=== PATIENT | female | born 1980 | race Caucasian/White ===

== ENCOUNTER 2019-01-16 14:30 | Observation (INO) ==
--- NOTE | 2019-01-16 15:34 | Diag Imaging Result Doc PS360 ---
EXAM : CT HEAD/C-SPINE W/O CONTRAST HISTORY: fall with LOC TECHNIQUE: 1. CT head without contrast 2. CT cervical spine without contrast COMPARISON: None. FINDINGS: Head: There is posterior scalp soft tissue swelling. No skull fracture. No parenchymal hemorrhage. No epidural or subdural hematoma. No subarachnoid hemorrhage. No mass identified on this noncontrasted exam. No hydrocephalus. Left maxillary air-fluid level. Cervical spine: There is good alignment to the cervical spine. No precervical soft tissue swelling. No subluxation. No fracture. IMPRESSION: Head: Posterior scalp hematoma, but no intracranial injury. Cervical spine: No acute fracture. This exam was performed using automated exposure control, adjustment of mA or kV according to patient size, and/or use of iterative reconstruction technique. Electronically signed by Gilbert Ramirez 01/16/2019 3:31 PM
[2019-01-16] MEDS ORDERED: NORCO-7.5 PO ONE (15:39)
--- NOTE | 2019-01-16 15:39 | PROVIDER DOCUMENTATION ---
HPI-General Adult - General Chief Complaint: Head Injury Stated Complaint: FALL Time Seen by Provider: 01/16/19 14:36 Source: patient Allergies/Adverse Reactions: Patient Allergies Allergy/AdvReac Type Severity Reaction Status Date / Time Penicillins Allergy Severe seizures Verified 05/23/18 06:51 codeine Allergy Intermediate RASH Verified 05/23/18 06:51 morphine Allergy flu like Verified 05/23/18 06:51 symptoms Home Medications: Home Medication List Medication Instructions Recorded Confirmed Last Taken Type Lisinopril/Hydrochlorothiazide 1 each PO DAILY 05/23/16 05/23/18 05/22/18 07:00 History [Lisinopril-Hctz 10-12.5 mg Tab] Hydrocodone/APAP 10 mg/325 mg 1 ea PO Q4H PRN PRN #25 tab 05/24/18 Unknown Rx [Polson-10] Ibuprofen [Motrin] 800 mg PO Q8H PRN PRN #30 tab 05/24/18 Unknown Rx - History of Present Illness -Gen Adult Nature of Presenting Problems: Patient is a 38 yowf who presents via EMS with complaints of a headache, right jaw pain, and right rib pain. Arrived via EMS. States, "I don't know what happened, but I woke up sitting in a chair surrounded by my co-workers and paramedics." Pt does not remember becoming dizzy or any symptoms prior to waking up. No one witnessed the event. She states, "My co-workers said I was wandering around talking crazy." She is now a&ox4 and neurologically intact. Denies any symptoms other than pain. She is non-toxic in appearance. Review of Systems - Adult - REVIEW OF SYSTEMS - ADULT Constitutional: reports: no symptoms reported Eyes: reports: no symptoms reported Ears, Nose, Mouth & Throat: reports: no symptoms reported Cardiovascular: reports: no symptoms reported Respiratory: reports: no symptoms reported Gastrointestinal: reports: no symptoms reported Genitourinary: reports: no symptoms reported Musculoskeletal: reports: see HPI, other (right rib pain, jaw pain). denies: neck pain Integumentary: reports: no symptoms reported Neurological: reports: see HPI, headache/migraines Psychiatric: reports: no symptoms reported Endocrine: reports: no symptoms reported Hematologic/Lymphatic: reports: no symptoms reported Allergic/Immunologic: reports: no symptoms reported All Other Systems: Reviewed and Negative Past History - Adult - PAST MEDICAL HISTORY-ADULT Review of Records: reports: Nursing Assessment Review, Medications Reviewed, Social history reviewed & non-contributory. Major Childhood Illnesses: reports: denies history Cardiovascular: reports: HTN Respiratory: reports: other (pulmonary embolism) Gastrointestinal: reports: denies history Obstetrical/Gynecological: reports: denies history Genitourinary: reports: denies history Musculoskeletal: reports: denies history Neurological: reports: denies history Psychiatric: reports: anxiety Endocrine/Immune: reports: denies history Other Conditions: reports: denies history - PRIOR SURGERIES/PROCEDURES Surgical/Procedure History: reports: hysterectomy - IMMUNIZATION STATUS Childhood Immunizations: See Nurse Assessment Flu Vaccine: See Nurse Assessment - FAMILY HISTORY Family History: reviewed, not pertinent - SOCIAL HISTORY Smoking: non-smoker Physical Exam-General - PHYSICAL EXAM-ADULT Initial Vital Signs Reviewed: Yes - CONSTITUTIONAL General Appearance: alert, mild distress. negative: lethargic, slow to respond - EYES Eyes: PERRL/EOMI, pink conjunctivae - HEAD, EARS, NOSE, MOUTH & THROAT HENMT: moist mucous membranes, normal ENT inspection, TMs normal, pharynx normal , other (occipital scalp hematoma) - NECK Neck: non-tender, full range of motion, supple, normal inspection. negative: C- spine tenderness, trachial deviation, tender lateral, tender midline - RESPIRATORY Respiratory: lungs clear, normal breath sounds, no respiratory distress, no accessory muscle use, other (Right rib region tender to palpation) - CARDIOVASCULAR Cardiovascular: normal peripheral pulses, regular rate, rhythm, no edema, no gallop, no JVD, no murmur - GASTROINTESTINAL (ABDOMEN) Abdominal Exam: normal bowel sounds, non tender, soft, no organomegaly, no pulsatile mass. negative: distended, guarding, rigid, rebound, tenderness, h ernia, mass, hepatomegaly, splenomegaly - MUSCULOSKELETAL Back Exam: normal inspection, no CVA tenderness, no vertebral tenderness, other (NO ecchymoses noted to torso) Extremity: normal range of motion, non-tender, normal gait, normal inspection, normal capillary refill - SKIN Integumentary: normal color, warm/dry. 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, grossly normal, no motor/sensory deficits - PSYCHIATRIC Psych/Mental Status: normal mood/affect, normal thought content, normal thought process, oriented x 3 Progress - PLAN OF CARE/RESULTS Progress/Plan/Lab Results: Vital Signs - 8 hr 01/16/19 14:40 Temperature 97.7 F Pulse Rate 90 Respiratory Rate 18 Blood Pressure 123/81 O2 Sat by Pulse Oximetry 97 Laboratory Results - last 24 hr 01/16/19 14:53 POC Glucose 147 H Orders Category Date Time Status Saline Loc NOW Care 01/16/19 15:[address] HEAD/C-SPINE W/O CONTRAST [CT] Stat Exams 01/16/19 14:[address] MAXILLOFACIAL(SINUS) W/O CO [CT] Stat Exams 01/16/19 15:26 Ordered RIBS UNILAT W/PA CHEST RIGHT [RAD] Stat Exams 01/16/19 15:26 Ordered CBC WITH DIFF [HEME] Stat Lab 01/16/19 15:26 Ordered COMPREHENSIVE METABOLIC PANEL [CHEM] Stat Lab 01/16/19 15:26 Uncollected TROPONIN T Stat Lab 01/16/19 15:26 Uncollected UA NIMS W/REFLEX CULT [URINALYSIS] Stat Lab 01/16/19 15:26 Uncollected 3- Admitting HPS paged. Pt in agreement with admission plan. Result Diagrams: 01/16/19 15:51 01/16/19 15:51 - EKG 1 Time of EKG reading by physician:: 14:53 EKG Read and Signed by:: Michael Vasquez EKG Interpretation (*Must complete 3 of following elements*): Normal Rate: 88 Rhythm: NSR QRS: normal ST Wave: normal - XRAY 1 XRAY: Right XRAY Study: Chest (IMPRESSION: Negative exam. Electronically signed by Frederick Rodriguez 01/16/2019 4:26 PM), Ribs - CT/MRI 1 CT Study: Cervical Spine (IMPRESSION: Head: Posterior scalp hematoma, but no intracranial injury. Cervical spine: No acute fracture. This exam was performed using automated exposure control, adjustment of mA or kV according to patient size, and/or use of iterative reconstruction technique. Electronically signed by Gilbert Ramirez 01/16/2019 3:31 PM), Head 2 CT Study: Facial Bones (IMPRESSION: No acute injury. Electronically signed by Frederick Rodriguez 01/16/2019 4:14 PM) 3 CT Study: Angiogram (IMPRESSION: Negative exam. This exam was performed using automated exposure control, adjustment of mA or kV according to patient size, and/or use of iterative reconstruction technique Electronically signed by Frederick Rodriguez 01/16/2019 7:28 PM) - CONSULTS/PCP/HOSPITALIST Notification #1 *Consult/PCP/Hospitalist*: Dr. Morillo Time Discussed: 20:03 Reason/Comments: admission- possible syncope Consult Disposition: Admit Departure - Departure Date of Disposition Decision: 01/16/19 Time of Disposition Decision: 20:03 DIAGNOSIS: Syncope Qualifiers: Syncope type: unspecified Qualified Code(s): R55 - Syncope and collapse Disposition: ADMITTED INPATIENT 09 Certified Medical Emergency: Emergent Condition: Serious Referrals and Follow-Ups: Valeria Cui MD [Primary Care Provider] - - Critical Care Note This patient required my direct & personal management of CC.: No Attestation - Physician/ ENRIQUETA Attestation Patient care was provided by Advanced Practice Provider:: Yes Advanced Practice Provider:: Nicole Lemons Advanced Practice Provider documentation review:: The Mid-level provider documentation, treatment plan and medical decision making was reviewed by the physician who agrees with all treatment and medical decision making by the MLP. The physician spent face to face time with patient:: No Advanced Practice Provider documentation review:: Supervising physician onsite and consulted in the evaluation and care of this patient. The physician did not have a face to face encounter with the patient.
[2019-01-16 16:08] LABS: BASO# 0.03 X1000 (0.0-0.2); BASO% 0.1 % (0.0-0.8); EOS# 0.01 X1000 (0.0-0.7); HEMATOCRIT 44.7 % (37.0-47.0); HEMOGLOBIN 15.7 g/dL (12.0-16.0); IMM GRAN# 0.08 X1000 (0.0-0.04); IMM GRAN% 0.4 % (0.0-0.5); MCH 30.7 PG (27-31); MCHC 35.1 g/dL (33-37); MCV 87.3 FL (81-99); MONO# 1.15 X1000 (0.11-0.59); MONO% 5.3 % (1.7-9.3); MPV 9.1 FL (7.4-10.4); NEUT# 19.25 X1000 (1.4-6.5); NEUT% 88.2 % (42.2-75.2); PLT 463 X1000 (130-400); RBC 5.12 XMIL (4.2-5.4); RDW 12.5 % (11.5-14.5); WBC 21.82 X1000 (4.8-10.8)
--- NOTE | 2019-01-16 16:16 | Diag Imaging Result Doc PS360 ---
CT MAXILLOFACIAL(SINUS) W/O CO - 01/16/2019 INDICATION: fall, facial pain TECHNIQUE: COMPARISON: None FINDINGS: There is a small amount of fluid in the left maxillary sinus. Other sinuses are clear. Mastoids and middle ears are clear. The facial bones are intact and normally aligned. IMPRESSION: No acute injury. Electronically signed by Frederick Rodriguez 01/16/2019 4:14 PM
--- NOTE | 2019-01-16 16:20 | EKG Report ---
Test Performed on : 01/16/2019 2:50:36 PM Test Reason : ED. NO EKG ORDER FOR MUSE Blood Pressure : / mmHG Vent. Rate : 088 BPM Atrial Rate : 088 BPM P-R Int : 134 ms QRS Dur : 076 ms QT Int : 386 ms P-R-T Axes : 033 018 045 degrees QTc Int : 467 ms Normal sinus rhythm. Normal ECG When compared with ECG of 16-MAY-2018 13:35, No significant change was found Unconfirmed Result
[2019-01-16 16:21] LABS: AGAP 12; ALB/GLOB RATIO 1.4; ALBUMIN 4.3 g/dL (3.5-5.0); ALKALINE PHOSPHATASE 101 U/L (32-104); BUN 14 mg/dL (8-22); CALCIUM 9.3 mg/dL (8.8-10.2); CHLORIDE 98 mmol/L (98-107); COSMO 277; CREATININE 0.7 mg/dL (0.5-0.9); ESTIMATED GFR > 60; GLUCOSE 145 mg/dL (70-104); GOT 35 U/L (10-30); GPT 28 U/L (10-36); SODIUM 137 mmol/L (136-145); TCO2 27 mmol/L (25-35); TOTAL BILIRUBIN 0.28 mg/dL (0.20-1.00); TOTAL PROTEIN 7.3 g/dL (6.3-8.3)
--- NOTE | 2019-01-16 16:28 | Diag Imaging Result Doc PS360 ---
RIBS UNILAT W/PA CHEST RIGHT - 01/16/2019 INDICATION: right rib pain, injury TECHNIQUE: Five views COMPARISON: 02/07/2016 FINDINGS: The chest is clear. The right-sided ribs are intact. IMPRESSION: Negative exam. Electronically signed by Frederick Rodriguez 01/16/2019 4:26 PM
[2019-01-16 16:47] LABS: URINE SOURCE CLEAN CATCH
[2019-01-16 17:01] LABS: BILIRUBIN URINE NEGATIVE (NEGATIVE); BLOOD URINE NEGATIVE (NEGATIVE); COLOR YELLOW; GLUCOSE URINE NEGATIVE (NEGATIVE); KETONE URINE 20 mg/dL (NEGATIVE); LEUKOCYTES URINE NEGATIVE (NEGATIVE); NITRITE URINE NEGATIVE (NEGATIVE); PH URINE 6.5; PROTEIN URINE TRACE mg/dL (NEGATIVE); SP GRAVITY URINE 1.006; TURBIDITY URINE CLEAR (CLEAR); UROBILINOGEN URINE NORMAL (NORMAL)
[2019-01-16 17:02] LABS: UR EPITHELIAL CELLS <10 /HPF (<10); URINE BACTERIA NEGATIVE /HPF; URINE RBC <10 /HPF (<10); URINE WBC <10 /HPF (<10)
[2019-01-16 17:12] LABS: BANDS 1 % (0-1); LARGE PLATELETS OCCASIONAL; LYMPHS 4 % (21-51); MONO 4 % (1-9); SEGS 91 % (42-75)
[2019-01-16] MEDS ORDERED: ZOFRAN IV ONE (18:40)
--- NOTE | 2019-01-16 19:31 | Diag Imaging Result Doc PS360 ---
CT ANGIOGRM PULMONARY ARTERIES - 01/16/2019 INDICATION: syncope? hx of pe TECHNIQUE: Axial CT images were obtained after administering intravenous contrast. Coronal MIP images were generated. COMPARISON: 02/07/2016 FINDINGS: There is no pulmonary embolism. Heart and great vessels are normal. The lungs are clear. Upper abdominal images are normal. Bones are intact. IMPRESSION: Negative exam. This exam was performed using automated exposure control, adjustment of mA or kV according to patient size, and/or use of iterative reconstruction technique Electronically signed by Frederick Rodriguez 01/16/2019 7:28 PM
[2019-01-16] MEDS ORDERED: TYLENOL PO PRN (20:53)
[2019-01-16] MEDS ORDERED: LOVENOX SUBQ SCH (21:00)
[2019-01-16 21:17] LABS: URINE SOURCE CLEAN CATCH
[2019-01-16 21:30] LABS: BILIRUBIN URINE NEGATIVE (NEGATIVE); BLOOD URINE NEGATIVE (NEGATIVE); COLOR YELLOW; GLUCOSE URINE NEGATIVE (NEGATIVE); KETONE URINE 20 mg/dL (NEGATIVE); LEUKOCYTES URINE NEGATIVE (NEGATIVE); NITRITE URINE NEGATIVE (NEGATIVE); PROTEIN URINE TRACE mg/dL (NEGATIVE); TURBIDITY URINE CLEAR (CLEAR); UROBILINOGEN URINE NORMAL (NORMAL)
[2019-01-16 21:32] LABS: UR EPITHELIAL CELLS <10 /HPF (<10); URINE BACTERIA NEGATIVE /HPF; URINE RBC <10 /HPF (<10); URINE WBC <10 /HPF (<10)
[2019-01-16] MEDS ORDERED: LIDODERM TOP ONE (22:55)
--- NOTE | 2019-01-16 23:00 | HISTORY AND PHYSICAL ---
CHIEF COMPLAINT: Syncope, transient alteration of consciousness. HISTORY OF PRESENT ILLNESS: A 38-year-old, with a past medical history of hypertension, depression, anxiety, and psoriasis, brought to the emergency department after having an episode of syncope. As per the patient, she was trying to climb a ladder and after a few steps, she fell from the ladder and she does not remember, but she does not remember anything. Actually the last time she was last seen, she remembers just trying to go up on the ladder and then when she woke up she was sitting on a chair, surrounded by coworkers and paramedics. As per the patient, she was in a hot place trying to get something with the ladder, but she did not spend more than 3 minutes. Apparently, nobody witnessed the episode of syncope, but they saw a piece of the ladder broken. Then apparently she did stand up, took her stuff, like her shoes, she walked and she was able to talk, but again the patient does not know what happened. In the emergency department, she was found to have a posterior scalp hematoma, but no intracranial injury or problem with the cervical spine. EKG was normal. Maxillofacial CT was normal as well. She is complaining of right-sided chest pain, which is tender to palpation and probably from the fall. The x-ray did not show any acute abnormality. Laboratory showed a WBC of 21.8, platelet count of 663. D-dimer was 3.7. Glucose level of 145. Slightly elevated AST and negative urine analysis. Just a little bit of ketones. Because of the elevated D-dimer, in the emergency department, they have decided to do a CT angiogram of the chest that basically is negative. At the moment of my physical exam, the patient was completely alert and oriented x3, no focal neurological deficits. She does have a scalp hematoma in the occipital/parietal area on the back of her head. Also, she has pain on the right side of the chest, mid axillary area around her 6-9th rib space. No hematoma or any wound around that. I will ask for an echocardiogram. I will get troponins, carotic ultrasound and lower extremity ultrasound. There is a high possibility of concussion on this patient, probably she fell and hit her head and that caused the episode of transient alteration of consciousness. I will get Neurology evaluation to rule out any other problems. She denies nausea, vomiting, shortness of breath, abdominal pain, diarrhea, constipation, double vision, dizziness. REVIEW OF SYSTEMS: All the 14 point of review of systems were reviewed, all of them negative except as per HPI. PAST MEDICAL HISTORY: Positive for psoriasis, hypertension, and depression/anxiety. She has a past medical history of pulmonary embolism, I believe in 2016 treated for 1 year with Xarelto. MEDICATIONS: For her psoriasis, she is using an ointment and a special shampoo, but she does not remember the names. For the high blood pressure, she is on lisinopril hydrochlorothiazide 10/12.5 daily. For depression and anxiety, she is on Effexor 37.5 mg a day. SOCIAL HISTORY: She denies tobacco, drugs, or alcohol. FAMILY HISTORY: Mother and father with diabetes. She has a strong family history of thromboembolism, including her dad, brother and aunts from her dad's side. Family history of lupus as well, 2 aunts from her dad's side. Also positive for multiple family history of ovarian and uterine cancer. SURGICAL HISTORY: Hysterectomy and cyst removal from her tailbone. ALLERGIES: To penicillin, codeine, and morphine. PHYSICAL EXAM: VITAL SIGNS: Temperature 97.7, pulse 82, respiratory rate 20, blood pressure 130/88, oxygen saturation 97% on room air. HEENT: Head normocephalic. PERRLA. She does have a posterior scalp hematoma that is painful to palpation. NECK: Supple. No JVD. Central trachea. CHEST: Clear to auscultation. No wheezing. No rales. Painful to palpation at the level of the right midline axillary area around 6-9 intercostal space. ABDOMEN: Soft, nontender, nondistended. No hepatosplenomegaly. EXTREMITIES: No edema. No clubbing. No cyanosis. NEUROLOGICAL: The patient is alert and oriented x3. No focal neurological deficits. LABORATORY: WBC 21.8, hemoglobin 15.7, hematocrit 44.7, platelets 463. D-dimer 3.7. Sodium 137, potassium 4, chloride 98, bicarbonate 27, BUN 14, creatinine 0.7, glucose 155, calcium 9.3. AST 35, ALT 28, alkaline phosphatase 101. ASSESSMENT AND PLAN: 1. Syncope/transient alteration of consciousness. Nobody witnessed what happened with this patient. We are not quite sure if this patient fell, and hit her head and then she was confused. I am not sure if the confusion was before falling. There was a piece of the ladder that was broken as well. She does not have any history of seizure disorder or syncope before, but apparently she was able to walk and talk, but she does not remember anything of that, I will get Neurology Department to evaluate this patient. Probably this is related to a concussion, but we need to rule out any other conditions if we have to. 2. Possible concussion as above. She does have a posterior scalp hematoma [*] Platelet count also has been elevated before, and that is why she will be evaluated by Hematology/Oncology. 3. Elevated D-dimer, a CT angiogram of the chest has been performed, negative for thromboembolism, I will get a lower extremity venous ultrasound to complete the workup, but she does not have any kind of problems. 4. Hypertension. Continue with home medications. 5. Depression and anxiety. Aware. She does not seem to be depressed at this moment. 6. Elevated glucose level. As per the patient she not have diabetes, I will get a hemoglobin A1c to rule it out. cc: Carlos Boyce MD
[2019-01-17 00:11] LABS: SP GRAVITY URINE 1.005
[2019-01-17 05:49] LABS: BASO# 0.01 X1000 (0.0-0.2); BASO% 0.1 % (0.0-0.8); EOS# 0.03 X1000 (0.0-0.7); EOS% 0.3 % (0.0-10.0); HEMATOCRIT 42.7 % (37.0-47.0); HEMOGLOBIN 14.8 g/dL (12.0-16.0); IMM GRAN# 0.04 X1000 (0.0-0.04); IMM GRAN% 0.3 % (0.0-0.5); LYMPH# 2.17 X1000 (1.2-3.4); LYMPH% 18.5 % (20.5-51.1); MCH 30.9 PG (27-31); MCHC 34.7 g/dL (33-37); MCV 89.1 FL (81-99); MONO# 1.18 X1000 (0.11-0.59); MONO% 10.1 % (1.7-9.3); MPV 9.2 FL (7.4-10.4); NEUT# 8.29 X1000 (1.4-6.5); NEUT% 70.7 % (42.2-75.2); PLT 411 X1000 (130-400); RBC 4.79 XMIL (4.2-5.4); RDW 12.8 % (11.5-14.5); WBC 11.72 X1000 (4.8-10.8)
[2019-01-17 06:15] LABS: AGAP 8; ALB/GLOB RATIO 1.4; ALBUMIN 4.1 g/dL (3.5-5.0); ALKALINE PHOSPHATASE 91 U/L (32-104); BUN 9 mg/dL (8-22); CALCIUM 8.8 mg/dL (8.8-10.2); CHLORIDE 95 mmol/L (98-107); COSMO 268; CREATININE 0.7 mg/dL (0.5-0.9); ESTIMATED GFR > 60; GLUCOSE 91 mg/dL (70-104); GOT 20 U/L (10-30); GPT 23 U/L (10-36); MAGNESIUM 2.1 mg/dL (1.5-2.7); POTASSIUM 3.7 mmol/L (3.5-5.1); SODIUM 135 mmol/L (136-145); TCO2 32 mmol/L (25-35); TOTAL PROTEIN 7.1 g/dL (6.3-8.3)
[2019-01-17 07:01] LABS: HEMOGLOBIN A1C 5.2 % (4.8-6.0)
--- NOTE | 2019-01-17 07:10 | EKG Report ---
Test Performed on : 01/17/2019 07:02:38 AM Test Reason : R/O arrhythmia Blood Pressure : / mmHG Vent. Rate : 058 BPM Atrial Rate : 058 BPM P-R Int : 138 ms QRS Dur : 094 ms QT Int : 438 ms P-R-T Axes : 049 038 043 degrees QTc Int : 429 ms Sinus bradycardia. Otherwise normal ECG When compared with ECG of 16-JAN-2019 14:50, (Unconfirmed) Vent. rate has decreased BY 30 BPM Confirmed by Jay REECE, Jayesh Lizama ([id number]) on 01/17/2019 11:39:47 AM
[2019-01-17] MEDS ORDERED: ULTRAM PO PRN (08:09)
[2019-01-17] MEDS: PRINZIDE 10/12.5MG PO SCH (08:27)
[2019-01-17 11:46] VITALS: BP 131/78
--- NOTE | 2019-01-17 12:53 | DISCHARGE SUMMARY ---
DATE: 01/17/2019 DISPOSITION: Home. FOLLOW-UP: 1. Dr. Valeria Cui. 2. Dr. Luba Lau. CONSULTATION DURING THIS ADMISSION: Neurology was consulted. Patient was seen by Dr. Herring. ADMISSION DIAGNOSES: 1. Syncope. 2. Possible concussion. 3. Elevated D-dimer. 4. Hypertension. DIAGNOSES AT THE TIME OF DISCHARGE: 1. Altered mental status on presentation secondary to posttraumatic concussion. 2. Status post mechanical fall with blunt trauma to the head. 3. Mild scalp hematoma. 4. Small non-occluding left common femoral deep vein thrombosis. 5. Hypertension. 6. History of pulmonary embolus in the past. DISCHARGE MEDICATIONS: 1. Lisinopril/hydrochlorothiazide 1 tablet daily. 2. Tramadol 50 mg p.o. q. 6 hours. 3. Xarelto 50 mg b.i.d. for 20 days, followed up by 20 mg daily. 4. Methocarbamol 500 b.i.d. PRESENTING COMPLAINT: Altered mental status. HISTORY OF PRESENTING COMPLAINT: Ms. Watkins is a 38-year-old female, who was at work, was going up on a ladder. The next thing she remembers is that she was sitting in the room with a lot of paramedics around her. She refers that other coworkers told her she walked to inside the room herself, and she was able to tell the co-workers that she had fallen, but she does not remember. Immediately she felt the right posterior occipital parietal scalp was swollen and tender. She was brought to the emergency department where she was evaluated and admitted for overnight stay. HOSPITAL COURSE: Ms. Watkins was adequately hydrated and was investigated, including a CT scan of the head and cervical spine, which was negative. Rib x-ray showed no rib fractures. A CTA was negative for pulmonary embolism. She was adequately hydrated overnight, and Neurology was consulted. Patient was seen by Dr. Herring, who also agreed that this was a postconcussion syndrome. Ms. Watkins this morning refers to be doing a lot better, except that she is generally sore, but otherwise she has not had any more neurological event. She is fairly stable. We think she is okay for discharge. She was found to have a non-occluding common femoral vein clot, so she has been started on anticoagulant. 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 She is going to follow up with Dr. Lau for thorough investigations on that. All the discharge instructions have been discussed with her. She voiced understanding. TIME SPENT FOR DISCHARGE: 36 minutes. cc: MD Dr. Sid Khan MD
--- NOTE | 2019-01-17 13:55 | CONSULTATION ---
DATE OF CONSULTATION: 01/17/2019 Ms. Watkins is a young woman with apparent recent head injury, question of concussion. History from the patient is that she was at work yesterday afternoon, feeling well. She remembers walking up some steps on a rolling portable stepladder. She believes she had climbed 3 steps and there may have been 1 more step. She next realized she was in a room sitting in a chair with coworkers and paramedics checking on her. There is report that the ladder broke. I believe this incident was not witnessed. I believe she was discovered down but that her fall was not witnessed. There was no report of rigidity, jerking, other seizure-like behavior. There was no incontinence, tongue biting, lip biting. She has not had any further memory gaps. She has soreness in her head and right flank and she is somewhat more generally sore. She feels mentally at baseline. There is no history of prior head injury. She has never had stroke, seizure, syncope, collapse, other neurologic event. She does not use ethanol. Past history is remarkable for hypertension, depression, anxiety. She reports discovery of elevated platelet count in recent weeks and workup was to begin soon for that problem. Here, platelet count has been over 400,000. WBC count was initially 21,000 and later 11,000. Glucose was initially 145 and later 91. Noncontrast CT showed posterior scalp hematoma but no intracranial findings. Face and cervical spine CT were unremarkable. She has been afebrile. Heart rate has ranged 70s-100s initially but 50s in recent hours. Systolic blood pressures have ranged 90s-130s. On exam, Ms. Watkins is awake, alert, attentive, appropriate. She is oriented to all parameters. She discussed recent news with accurate details. Speech is not dysarthric. Language function is intact. Remote memory is good. There is no meningismus. Visual gallegos are full. Extraocular movements are full. Facial motility is symmetric. Gag is intact. Tongue is midline. Shoulder shrug is equal. Strength is normal in the arms and legs. Tone is symmetric in the limbs. She did well on [id number] testing bilaterally. Sensation is intact to pinprick testing over the feet. Proprioception is normal at the great toe MTP joint bilaterally. Reflexes are 1+ at the ankles symmetrically. Plantar response is silent bilaterally. I did not test her gait. IMPRESSION: Apparent fall almost 24 hours ago, likely closed-head injury with concussion, typical retrograde and anterograde amnesia. I do not find anything to suggest seizure or other primary neurologic event. We discussed potential for protracted headache. I am optimistic she will continue to improve. I do not think we need further workup from a neurologic standpoint now. Mild bradycardia is noted. If she has more problems, I will be glad to see her again. Thanks for asking Neurology to see Ms. Watkins. cc: MD HERIBERTO Baron III
--- NOTE | 2019-01-17 22:28 | ECHO REPORT ---
ORDER DATE: 01/16/2019 MEASUREMENTS: 1. Septal thickness 0.8. 2. Left ventricular internal diameter diastole 4.5. 3. Posterior wall thickness 0.8. 4. Left ventricular internal diameter in systole 2.8. 5. Aortic root 3.1. 6. Left atrium 3.9. SUMMARY: 1. Technically difficult study due to limited acoustic window quality. 2. Aortic valve is without evidence of structural abnormality and opens adequately on 2- dimensional images. Peak gradient across the aortic valve was less than 10 mmHg. Mitral and tricuspid valves are without evidence of structural abnormality with trace tricuspid regurgitation. Pulmonic valves all demonstrated. Aortic root is normal size. 3. Normal left ventricular dimensions demonstrated. Estimated left ventricular ejection fraction appears to be at least 65%. No regional wall motion abnormalities evident. Left atrium is upper normal in size. Right atrium and right ventricle are normal in size with normal right ventricular systolic function. 4. No pericardial effusion. 5. Appearance of inferior vena cava suggests normal central venous pressure. cc: MD Carlos Parsons MD
--- NOTE | 2019-01-18 15:20 | Carotid Study ---
DATE: 01/16/2019 PROCEDURE: Carotid duplex imaging. REFERRING PHYSICIAN: Dr. Morillo INTERPRETING PHYSICIAN: Dr. Gutierrez TECH: [place] INDICATIONS: Syncope. EQUIPMENT: Biomondeid E9 ultrasound system with a 9LD transducer. OBSERVED DATA RIGHT LEFT Brachial Blood Pressure Carotid Pulse Bruits: Carotid/Sub DIAGRAM OF ULTRASOUND IMAGING R L RIGHT INT EXT INT EXT LEFT Geovanny (cm/s) Geovanny (cm/s) Subclavian 91/0 Subclavian 126/0 CCA Proximal 106/25 CCA Proximal 118/33 CCA Distal 96/24 CCA Distal 97/26 Bulb 97/29 Bulb 81/26 ICA Proximal 69/22 ICA Proximal 80/22 ICA Mid 73/36 ICA Mid 63/25 ICA Distal 92/36 ICA Distal 70/31 ECA 116/25 ECA 91/15 Vertebral 68/25 A Vertebral 74/24 A ICA/CCA Ratio 0.87 ICA/CCA Ratio 0.68 % Stenosis 0 to 39 % Stenosis 0 to 39 FINDINGS: Minimal atherosclerosis which at this time does not produce a hemodynamically significant flow limiting stenosis. Both vertebral arteries were antegrade flow. PHYSICIAN INTERPRETATION: By strict velocity criteria, no hemodynamically significant flow limiting stenosis. cc: MD Carlos Fajardo MD
--- NOTE | 2019-01-18 19:06 | Extremity Venous Study ---
PROCEDURE NAME: Venous U/S Bilateral Legs - 01/16/2019 REQUESTING PHYSICIAN: Dr. Morillo. ORCHID HAND: Mauricio. INDICATION: Syncope. EQUIPMENT: [employer] Vivid E9 ultrasound system and a 9 L-D transducer. FINDINGS: Images of the bilateral lower extremity venous systems were obtained in both sagittal and transverse planes. Doppler was used to evaluate veins for spontaneity, phasicity, respiratory excursion, and digital augmentation. RESULTS: A small amount of DVT noted in the left common femoral vein on the anterior wall. This is nonoccluding at this point. There are no other signs of DVT noted. INTERPRETATION: Deep venous thrombosis noted in the left common femoral vein which is nonoccluding. Per the multi craft maintenance technician's note, verbal report was given to Dr. Almonte. cc: MD Carlos Fajardo MD
== END 2019-01-17 15:24 | disposition home or self-care (01) ==
LOC: SUPCPDRO → EDIPHOLD 14:30 → ED 14:30 → SUATTDRO 22:26 → 3N 22:28
PROVIDERS: ATTEND Internal Medicine
CPT/HCPCS: 70450; 70486; 71101; 71275; 72125; 80053; 81001; 82948; 83036; 83735; 84443; 84484; 85025; 85379; 87040; 87088; 93005; 93010; 93306; 93880; 93970; 96372; 96374; 99285; A9270; J1650; J2405; Q9967; XXXXX